=== PATIENT | male | born 1990 ===

== ENCOUNTER → 2025-05-15 | Outpatient (REF) | payer OTHER ==
[2025-05-15 11:13] LABS: SEMEN APPEARANCE OPAQUE (OPAQUE); SEMEN VISCOSITY LIQUID (LIQUID); SEMEN VOLUME 0.8 ml (2.0-5.0); SPERM CONCENTRATION 37.7 M/ml (>=15.0); TOTAL PROGRESSIVE SPERM 12.0 M/Ejac.; WBC CONCENTRATION >1 M/ml (<=1 M/ml)
== END ==
LOC: M LAB REF 11:07
PROVIDERS: ATTEND Student in an Organized Health Care Education/Training Program
DX: Z31.41 Encounter for fertility testing (principal)